=== PATIENT | female | born 1960 | race Caucasian/White ===

== ENCOUNTER 2019-12-19 10:53 | Outpatient (CLI) | payer OTHER, SELFPAY ==
--- NOTE | ~2019-12-19 | XR_ITS ---
XR finger 1st LT min 2V DATE: 12/19/2019 11:21 INDICATION: Pain TECHNIQUE: 3 views COMPARISON: None FINDINGS: There is osteoarthritis at the first carpometacarpal joint. No fracture, dislocation, periosteal reaction or bone destruction. IMPRESSION: Osteoarthritis at first carpometacarpal joint Reviewed, dictated and finalized at location A.
--- NOTE | ~2019-12-19 | XR_ITS ---
XR finger 1st RT min 2V DATE: 12/19/2019 11:21 INDICATION: Osteoarthritis TECHNIQUE: 3 views COMPARISON: None FINDINGS: There is mild osteoarthritis at the first carpometacarpal joint. No fracture, dislocation, periosteal reaction or bone destruction. IMPRESSION: Mild osteoarthritis Reviewed, dictated and finalized at location A. IMPRESSION: Mild osteoarthritis
== END 2019-12-19 10:54 | disposition home or self-care (01) ==
PROVIDERS: PCP Family Medicine; Visit Provider Plastic Surgery
DX: M19.031 Primary osteoarthritis, right wrist (principal); M19.032 Primary osteoarthritis, left wrist
CPT/HCPCS: 73140

== ENCOUNTER 2019-12-29 08:47 | Outpatient (CLI) | payer OTHER, SELFPAY ==
--- NOTE | ~2019-12-29 | XR_ITS ---
EXAMINATION: XR sm joint inject/asp w image, XR sm joint inject/asp add DATE: 12/29/2019 10:02 INDICATION: Left and right thumb pain TECHNIQUE: A time-out was performed to verify the patient's name, date of , and procedure to b e performed. The procedure including the risks, benefits, and alternatives was discussed with the pat ient. Risks discussed included bleeding and infection. The patient understood the risks and agreed to proceed. Attention was first turned to the left first carpometacarpal joint. The overlying skin was prepped and draped in usual sterile fashion. Anesthetic was administered with 1% lidocaine subcutane ously. A 25 G needle was advanced under fluoroscopic guidance into the joint. Injection of 0.1 mL o f Omnipaque 240 confirmed intra-articular position of the needle. Subsequently 0.7 mL of a 40 mg/mL mixture of Kenalog for a total dosage of 28 mg Kenalog was instilled. Washout of contrast and widenin g of the joint space was seen confirming intra-articular administration. The needle was removed and t he entry site was cleaned and dressed. Attention was then turned to the right first carpometacarpal joint. The overlying skin was prepped an d draped in usual sterile fashion. Anesthetic was administered with 1% lidocaine subcutaneously. A 25 G needle was advanced under fluoroscopic guidance into the joint. Injection of 0.1 mL of Omnipaqu e 240 confirmed intra-articular position of the needle. Subsequently 0.7 mL of a 40 mg/mL mixture of Kenalog for a total dosage of 28 mg Kenalog was instilled. Washout of contrast and widening of the j oint space was seen confirming intra-articular administration. The needle was removed and the entry s ite was cleaned and dressed. There were no immediate complications. Fluoroscopy exposure time for the combined procedures was 0.3 minutes. The total number of images was 6. FINDINGS: Real-time fluoroscopy demonstrates the needle and contrast in the first the left first carp ometacarpal joint and subsequently in the right first carpal metacarpal joint. IMPRESSION: 1. Successful fluoroscopic guided injection of 28 mg Kenalog into both the left and right first carpa l metacarpal joints. Reviewed, dictated and finalized at location A. [employer] IMPRESSION: 1. Successful fluoroscopic guided injection of 28 mg Kenalog into both the left and right first carpal metacarpal joints.
== END 2019-12-29 08:48 | disposition home or self-care (01) ==
PROVIDERS: PCP Family Medicine; Visit Provider Plastic Surgery
DX: M19.031 Primary osteoarthritis, right wrist (principal); M19.032 Primary osteoarthritis, left wrist
CPT/HCPCS: 20600; 77002; J3301; Q9966

== ENCOUNTER 2020-09-28 11:40 | Outpatient (CLI) | payer BC, SELFPAY ==
--- NOTE | 2020-09-28 11:45 | ECG_ITS ---
Measurements Intervals [place] Rate: 76 P: 58 IA: 133 QRS: 32 QRSD: 77 T: 28 QT: 348 QTc: 393 Interpretive Statements SINUS RHYTHM BASELINE ARTIFACT- I, II, III, AVR, AVL NORMAL ECG Electronically Signed On 09-28-2020 12:29:13 CDT by Saurabh Villafuerte D.O.
== END 2020-09-28 11:41 | disposition home or self-care (01) ==
LOC: ANHSURGERY 11:45
PROVIDERS: PCP Family Medicine; Visit Provider Plastic Surgery
DX: I49.9 Cardiac arrhythmia, unspecified (principal)
CPT/HCPCS: 93005

== ENCOUNTER 2020-09-29 00:32 | Day surgery (SDC) | payer BC, SELFPAY ==
[2020-09-27 14:17] VITALS: BMI 32.0
--- NOTE | 2020-09-28 14:57 | WPDANESEPPF ---
Anes - Initial Pre Proc Eval Procedure: Operation Date: 09/29/20 07:30 Proposed Procedures p Left Trapezium Resection Arthroplasty with Arthrex Internal Brace - Yossi Andrews MD Date/Time: 09/28/20 14:57 Surgeon: Yossi Andrews MD Pre Op Diagnosis: Left First Carpalmetacarpal Osteoarthritis Patient Data Age: 60 Gender: F Height: 1.73 m Weight: 95.45 kg Allergies Allergy/AdvReac Type Severity Reaction Status Date / Time morphine AdvReac Intermediate NUMBNESS Verified 09/29/20 06:10 OF ARMS/LEGS erythromycin base AdvReac Mild Nausea Verified 09/29/20 06:10 Penicillins AdvReac Mild Blister Verified 09/29/20 06:10 Home Medications Medication Instructions Recorded Confirmed Type fluticasone propionate [Flonase] 1 spray INTRANASAL DAILY 09/27/20 09/29/20 History meloxicam 7.5 mg PO PRN 09/27/20 09/29/20 History metoprolol tartrate 12.5 mg PO BID 09/27/20 09/29/20 History hcxmxhnmbtrz-boa-soms-FA-vit K 1 tablet PO DAILY 09/27/20 09/29/20 History Patient hx anesthesia problems: none Family hx anesthesia problems: none PMFSH Past Medical History Medical History (Updated 09/28/20 @ 14:57 by Walter Steele MD) Paroxysmal SVT (supraventricular tachycardia) Family History Family History (System 01/14/19 @ 10:51 by Noa Armas) Mother Diabetes mellitus Family history of cardiovascular disease Family history of malignant neoplasm of stomach Grandparent Family history of cardiovascular disease Father Family history of pancreatic cancer Family history of primary malignant neoplasm of liver Social History Social History (System 01/14/19 @ 10:51 by Noa Armas) Smoking status: Never smoker Alcohol intake: current Drinks per week: 5 Alcohol use details: socially Living arrangements: with family Spiritual care concerns: No Anes - Eval Final PreProcedure Day of Procedure 09/28/20 14:57 Patient weight: obese Heart: regular rate and rhythm Lungs: clear to auscultation Airway: Mallampati scale class III Neurological: alert and oriented Last oral intake: >/= 8 hours ASA classification: III Emergent: no Anesthetic plan: proceed Anesthesia type and monitoring: general LMA and standard monitoring Informed Consent: The patient's anesthetic plan and its attendant risks and benefits were discussed with the patient/family/POA. Questions were solicited and answers provided to the satisfaction of the patient/family/POA.
[2020-09-29] VITALS (8 sets, daily range): BP systolic 116–131; BP diastolic 69–89; PULSE 69–103; RESP 13–20; TEMP 36.5–36.9; O2SAT 93–99
--- NOTE | ~2020-09-29 | XR_ITS ---
XR surgery orthopedic DATE: 09/29/2020 08:57 INDICATION: Left trapezium resection TECHNIQUE: Multiple spot C-arm images of the left wrist and metacarpal area COMPARISON: 12/29/1999 21st carpometacarpal joint injection 12/19/2019 1st digit radiograph FINDINGS: There is surgical resection of the trapezium bone. IMPRESSION: Surgical resection of trapezium Reviewed, dictated and finalized at Location A. Reviewed, dictated and finalized at location A.
[2020-09-29] MEDS: LACTATED RINGERS 1,000 ML 30 ML IV CONT ×2 (06:20→09:15)
--- NOTE | 2020-09-29 07:03 | WPDHPUPDATE1 ---
History and Physical Update Update Date/Time: 09/29/20 07:03 History and Physical has been reviewed, including an updated exam of the patient. There are NO changes in the patient's condition. Risks, benefits, and alternatives have been discussed and questions answered. Patient agrees to proceed with procedure.
[2020-09-29] MEDS: ceFAZolin 2 GM/D5W 50 ML 2 GM/50 ML BAG IVPB (07:33)
[2020-09-29] MEDS: LIDO 1%/EPINEPHRINE/PF 1:200,000 30 ML VIAL INFILTRATE (08:01)
--- NOTE | 2020-09-29 09:31 | P.OPB_ITS ---
Procedure Note - Brief Procedure Note - Brief Date of procedure: 09/29/20 Pre-op diagnosis: Left First Carpalmetacarpal Osteoarthritis Post-op diagnosis: same Procedure performed: Trapezium resection arthroplasty with Arthrex InternalBrace. Implants: Arthrex InternalBrace Anesthesia: GLMA Surgeon: Yossi Andrews MD Toolroom Checker: Jessica Crane Estimated blood loss (mL): 5 Tourniquet time (min): 60 Drains: No Packing: No Pathology: none sent Complications: No immediate complications Condition: stable Disposition: PACU
[2020-09-29] MEDS: fentaNYL CITRATE INJ (*CRX) 100 MCG/2 ML VIAL 25 MCG IV PUSH ×4 (09:39→09:52)
--- NOTE | 2020-09-29 09:49 | W.PM.PROC2 ---
Procedure Note - Detailed Date of Procedure 09/29/20 Pre-op Diagnosis Left First Carpalmetacarpal Osteoarthritis Post-op Diagnosis same Procedure Performed Left trapezium resection arthroplasty with Arthrex internal brace Surgeon Yossi Andrews MD Estimated Blood Loss -5.0
[2020-09-29] MEDS: ONDANSETRON INJ 4 MG/2 ML VIAL IV PUSH (10:21)
[2020-09-29] MEDS: KETOROLAC 30 MG/ML VIAL (*BKC) IV PUSH (10:30)
--- NOTE | 2020-09-29 10:45 | P.OP_ITS ---
Procedure Note - Detailed Date of Procedure 09/29/20 Pre-op Diagnosis Left First Carpalmetacarpal Osteoarthritis Post-op Diagnosis same Procedure Performed Left trapezium resection arthroplasty with Arthrex internal brace Surgeon Yossi Andrews MD Buoy Tender Ava Crane Anesthesia general Indications Painful osteoarthritis of the left basal joint failing conservative treatment Description of Procedure The patient's left basal joint area was marked in the holding area. She was taken to the operating room and placed supine on the operating table. She was given 2 g of Ancef IV. The extremity was prepped and draped in usual fashion. The time-out was held and confirmed. The site was marked for incision and locally infiltrated with 1% lidocaine with epinephrine. The arm was exsanguinated with an Nishant wrap and the tourniquet inflated to 250 mmHg. The incision was made as marked and carried through the subcutaneous tissue. A single branch of the superficial radial nerve was identified and remained on the palmar side of our incision. The interspace between the EPB and the APL was incised exposing the joint. The trapezium was dissected with a 15 blade and [place] elevator. The trapezium was removed piecemeal. The deeper portion of that was divided with an osteotome. C-arm images confirmed the removal of that bone. Appropriate placement of the 2nd metacarpal anchor was confirmed with the C-arm and the site drilled. The Arthrex drill was placed over that and the fenestration made for the anchor. [place] was applied as usual. A good hold was obtained. The radial base of the 1st metacarpal was exposed and the 2nd anchor applied at that position satisfactorily. The anchor was set with the thumb abducted against the 2nd metacarpal. The site was irrigated and the capsular tissue closed with 3-0 Ethibond. The skin was closed with intradermal 4-0 Monocryl. . No additional Marcaine was given. A soft bandage with a thumb spica splint allowing IP joint range of motion was applied. The patient is discharged with prescription for hydrocodone . Estimated Blood Loss -5.0
== END 2020-09-29 11:08 | disposition home or self-care (01) ==
PROVIDERS: PCP Family Medicine; Visit Provider Plastic Surgery
PROC: (CPT 25447; principal; 2020-09-29 07:30)
DX: M18.12 Unilateral primary osteoarthritis of first carpometacarpal joint, left hand (principal); I47.1 Supraventricular tachycardia; E66.9 Obesity, unspecified; Z68.32 Body mass index [BMI] 32.0-32.9, adult
CPT/HCPCS: 25447; A9270; C1713; J0690; J1885; J2250; J2405; J3010; J7120

== ENCOUNTER 2020-11-17 09:30 | Outpatient (RCR) | payer BC, SELFPAY ==
--- NOTE | 2020-10-15 11:15 | OTOPEVAL ---
OCCUPATIONAL THERAPY INITIAL EVALUATION REPORT 10/15/20 Thank you for referring Yovany Vazquez to [facility] [place].? The patient is scheduled to be seen for therapy? 1-2x/week for 5 weeks. Please review, sign, date and return this plan of care EVELYNE. I agree with and certify that the following plan of care is medically necessary. Referring Physician Date Referring Provider: Yossi Andrews MD *OT Outpatient Evaluation Outpatient Past Medical History Neurological History Hx Neurological Disorders No Significant History Cardiovascular History Hx Irregular Heartbeat Yes: SVT Hx Other Cardiac Disorders Yes: SVT Respiratory History Hx Asthma Yes: as child Gastrointestinal History Hx Gastrointestinal Disorders No Significant History Genitourinary History Hx Genitourinary Disorders No Significant History Musculoskeletal History Hx Arthritis Yes: left finger osteoarthritis 10/09 Hematological History Hx Hematological Disorders No Significant History Endocrine History Hx Endocrine Disorders No Significant History HEENT History Hx Tonsillectomy Yes Hx Sinus Problems Yes: allergies Integumentary History Hx Skin Disorders No Significant History Reproductive History Hx Tubal Ligation Yes Hx Other Reproductive Disorders Yes: ablation Psychosocial History Hx Psychiatric Disorders No Significant History Pain History History of Any Previous or Ongoing No Significant History Instance of Pain Anesthesia History Hx Anesthesia Reactions No Significant History Evaluation Information Problem Diagnosis Left CMC OA s/p trapezium resection with Arthrex internal brace Onset 09/29/20 Subjective Information Patient states she has been Query Text:As Reported By Patient/ completing ADLs, driving, and Family typing 1-handed due to stiffness and pain. Presents today with the splint and silver wrap donned in surgery. 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
--- NOTE | 2020-11-17 10:17 | OTOPEVAL ---
OCCUPATIONAL THERAPY RE-EVALUATION AND DISCHARGE SUMMARY 11/17/20 Patient presents today, 7 weeks post trapezium resection arthroplasty, for OT re-evaluation. Measurements today show excellent return of ROM with some end-range tightness for composite thumb flexion. Card Decorator/pinch strength measurements also indicate some residual weakness. At this time the patient is independent with ROM and strengthening HEP as well as informed of ways to progress these exercises as she gets stronger. Recommend that she continues to complete her HEP diligently for another month to continue to strengthen and fine-tune these residual deficits. No further skilled OT indicated at this time. Discharging today with patient independent with HEP. Thank you for referring Yovany Vazquez to [facility].? Please review, sign, date and return this D/C Note EVELYNE. I agree with and certify that the following plan of care is medically necessary. Referring Physician Date Referring Provider: Yossi Andrews MD *OT Outpatient Re-Evaluation Start: 10/15/20 09:33 Re-Evaluation Information Diagnosis Left CMC OA s/p trapezium resection with Arthrex internal brace Onset 09/29/20 Additional Evaluation Detail 10/15/20 - Therapy began. She has attended 10 sessions for ROM and strengthening of the left wrist and hand. Subjective Information Patient states everything is Query Text:As Reported By Patient/ better . Noting ability to use Family her left hand for ADLs, driving, and typing. States her ROM and strength are getting better, but she does state that she needs to continue to work on these. Pain Assessment Timing of Pain Assessment Timing of Pain Assessment Re-assessment Pain Scale Pain Scale Used Numeric (1 - 10) Self Report Pain Assessment Left Thumb(s) Reported Pain Level 0 Lowest Pain Intensity 0 Greatest Pain Intensity 0 Pain Score Pain Score 0: Self Report Additional Pain Score Comments Reports no pain just soreness from strengthening. Upper Extremity Range of Motion Wrist Range of Motion Left Wrist Flexion - Active 60 Wrist Flexion - Passive 70 Wrist Extension - Active 60 Wrist Radial Deviation - Active 15 Wrist Ulnar Deviation - Active 25 Finger Range of Motion Left Finger Range of Motion Comments Full fist - intact Hook fist - some residual intrinsic tightness noted by 0 .5-1 cm gap for index, middle, and ring fingers Thumb Range of Motion Left Thumb MCP Flexion - Active 45 Thumb IP Flexi
== END 2020-11-17 15:41 | disposition home or self-care (01) ==
LOC: ANHOT 09:30
PROVIDERS: PCP Family Medicine; Visit Provider Plastic Surgery
DX: Z48.89 Encounter for other specified surgical aftercare (principal)
CPT/HCPCS: 97018; 97110; 97140; 97165; L3906

== ENCOUNTER 2021-02-01 07:30 | Outpatient (RCR) | payer BC, SELFPAY ==
--- NOTE | 2021-01-04 08:54 | OTOPEVAL ---
OCCUPATIONAL THERAPY EVALUATION REPORT 01/04/21 Yovany presents today, 14 weeks following CMC resection arthroplasty, for an assessment of her progress as she has concerns about the residual weakness. She has improved with functional wood carver strength, but does have residual weakness in her pinch strengths. Putty HEP was reviewed with a few new exercises to pinpoint the thumb adductor and muscles of the thenar eminence. Recommend that she complete an additional follow up in 4 weeks (~Feb 01) for a final assessment of her progress with the left thumb strengthening. She is in agreement and states that this will hold her more accountable with her HEP. Thank you for referring Yovany Vazquez to [facility].? The patient is scheduled to be seen for therapy? 0-1x/week for 4 weeks. Please review, sign, date and return this plan of care EVELYNE. I agree with and certify that the following plan of care is medically necessary. Referring Physician Date Referring Provider: Yossi Andrews MD *OT Outpatient Evaluation Start: 01/04/21 07:38 Therapy Assessment Status Assessment Status Assessment Status Evaluation Outpatient Past Medical History Past Medical History Source of Past Medical History Patient Neurological History Hx Neurological Disorders No Significant History Cardiovascular History Hx Irregular Heartbeat Yes: SVT Hx Other Cardiac Disorders Yes: svt Respiratory History Hx Asthma Yes: as child Gastrointestinal History Hx Gastrointestinal Disorders No Significant History Genitourinary History Hx Genitourinary Disorders No Significant History Musculoskeletal History Hx Arthritis Yes: left finger osteoarthritis 10/09 Hematological History Hx Hematological Disorders No Significant History Endocrine History Hx Endocrine Disorders No Significant History HEENT History Hx Tonsillectomy Yes Hx Sinus Problems Yes: allergies Integumentary History Hx Skin Disorders No Significant History Reproductive History Hx Tubal Ligation Yes Hx Other Reproductive Disorders Yes: ablation Psychosocial History Hx Psychiatric Disorders No Significant History Pain History History of Any Previous or Ongoing No Significant History Instance of Pain Anesthesia History Hx Anesthesia Reactions No Significant History Evaluation Information Problem Diagnosis s/p resection arthroplasty Onset 09/29/20 Subjective Information Patient presents today for an Query Text:As Reported By Patient/ assessment of the left thumb Family arthroplasty, completed 14 weeks ago. She was discharged from OT on 11/17/20, however she has concerns today about the weakness in the left hand and has tightness in the fingers still. Reports
--- NOTE | 2021-02-01 08:09 | OTOPEVAL ---
OCCUPATIONAL THERAPY RE-EVALUATION AND DISCHARGE NOTE 02/01/21 Yovany presents today for a final follow up of the left hand s/p CMC arthroplasty. She has been diligently working on strengthening and using her left hand in prep for having the right thumb CMC arthroplasty. Strength measurements today all improved and she is using the hand for all ADL tasks now. She states she is confident to go through with the right hand now. Educated on and reviewed digit II-V ROM and recommend that she begin these exercises within the first few days after surgery to limit the residual stiffness and edema that she had in the left fingers. D/C today with goals met. Thank you for referring oYvany Vazquez to [facility].? Please review, sign, date and return this D/C Note EVELYNE. I agree with and certify that the following plan of care is medically necessary. Referring Physician Date Referring Provider: Yossi Andrews MD *OT Outpatient Re-Evaluation Start: 01/04/21 07:38 Problem Diagnosis s/p resection arthroplasty Onset 09/29/20 Subjective Information Patient was assessed 4 weeks Query Text:As Reported By Patient/ ago for a follow up on the Family left thumb CMC arthroplasty as she continued to have some weakness and limitations with use. She was hesitant to go through with the right thumb CMC arthroplasty due to this. She states that in the last 4 weeks she has been more diligently working on strengthening and forcing herself to use the left hand. She reports feeling stronger and is now able to open drinks and containers with the left hand. She reports no pain on the left. Pain Assessment Timing of Pain Assessment Timing of Pain Assessment Re-assessment Self Report Self Report Pain Level 0 Pain Score Pain Score 0: Self Report Upper Extremity Range of Motion Wrist Range of Motion Left Wrist Flexion - Active 65 Wrist Extension - Active 65 Wrist Radial Deviation - Active 20 Wrist Ulnar Deviation - Active 35 Wrist Range of Motion Comments Measurements from 11/17/20: -Flexion 60* -Extension 60 -RD 15* -UD 25* She continues to complete wrist strengthening with 2# free weight. Finger Range of Motion Left Finger Range of Motion Comments Full fist - intact Hook fist - index and middle
== END 2021-02-01 12:27 | disposition home or self-care (01) ==
LOC: ANHOT 07:30
PROVIDERS: PCP Family Medicine; Visit Provider Plastic Surgery
DX: Z47.89 Encounter for other orthopedic aftercare (principal)
CPT/HCPCS: 97110; 97165

== ENCOUNTER 2021-02-17 00:42 | Day surgery (SDC) | payer BC, SELFPAY ==
[2021-02-09 13:59] VITALS: BMI 30.4
--- NOTE | 2021-02-09 14:03 | PC.NURSE ---
Report to the Outpatient Waiting Room, entrance under the green pavilion located off [facility], at time _0600___ on date _02-17-2021. OR Time: ___07_. - You and your visitor will be asked a series of questions to screen for COVID 19 for your protection. - A mask is required within the hospital. - Only one visitor is allowed at this time. Patient visitors will be guided where to wait when not with patient. Preoperative COVID Testing Requirements: No COVID Test needed if: (proof is required; if not received patient will have Rapid Test prior to entry) - Patient has received COVID Vaccine at least 14 days prior to procedure date or - Patient has positive COVID test result within last 90 days of surgery date. COVID Test needed if above criteria is not met If not COVID vaccinated a COVID test must be conducted within 72 hours of surgery and patient is asked to isolate self from time of testing until procedure. You will go to the [employer] [facility] for your COVID testing. The [employer] [facility] site is located at the corner of [address] from [facility]. You will only be called if COVID results are positive and your surgeon may reschedule your elective surgery date. Patients may have clear liquids (water, carbonated beverages, clear teas, apple juice) until 3 hours prior to surgery with a maximum of 20 ounces. - No food from midnight until time of surgery - Infants may have breast milk until 4 hours before surgery, infant formula 6 hours prior to surgery. - Children will be allowed to drink immediately following surgery. If applicable, please bring a bottle or sippy cup to assist with drinking. Juice, water, soda, and popsicles are readily available. For infants on formula, please bring formula the day of surgery. Pacifiers are allowed. Take the following medications with a SIP of water the morning of surgery: Metoprolol and Flonase Medications to discontinue per physician Multivitamin Date to take last obsw [id number] Please no make-up, nail czech, hairspray, perfume, deodorant, or body powder the day of surgery. No jewelry (including any body piercings) or valuables the day of surgery, leave them at home. Please take a shower or bath the night before, or the morning of, surgery with an antibacterial soap. Wear comfortable, loose fitting clothing. Children are encouraged to wear pajamas. - Jewelry must be removed prior to entering the operating room. Rings and piercings that are not removed may be cut off. - The hospital will not accept responsibility for valuables. - Please leave all valuables, including medications, at home the day of surgery. If you are going home after surgery, a licensed road oiling truck driver must drive you home. - NO public transportation without another adult. - We recommend that an adult stay with you for 24 hours following discharge. - We also recommend that you do not drive, make important decision, drink alcoholic beverages, or take any drugs that were not prescribed by your health care provider for at least 24 hours after your discharge time. For Pediatric surgeries, we recommend two adults accompany the child home (only one inside the building at this time). Follow any additional instructions given to you from your surgeon. Telephone instructions given to __Patient and asked if any additional questions and then verbalized understanding. Patient advised to call surgeon office or pre surgery nurse liaison [phone] if any additional questions.
--- NOTE | ~2021-02-17 | XR_ITS ---
EXAMINATION: XR surgery orthopedic DATE: 02/17/2021 08:51 INDICATION: Right trapezium resection TECHNIQUE: 2 fluoroscopic images of the radial aspect of the right carpus were obtained during proced ure performed by Dr. Andrews. Radiologist was not present for the imaging or procedure. The amount of f luoroscopy time used during this procedure was 0.4 minutes. Total DAP was 0.011 mGycm^2 COMPARISON: None. FINDINGS: Initial image demonstrates resection of the trapezium and osteotomy involving portions of the radial margins of the base of the second metacarpal and small portion of the radial margin of the trapezoid. There are a few residual bone fragments at the resection bed on the initial image which appears to h ave been subsequently debrided on the second image. On the second image there is proximal migration o f the first metacarpal with suggestion of some soft tissue situated between the base of the first met acarpal and the scaphoid likely for suspension arthroplasty. Tiny catheter tubing projecting over the operative bed could be for either drainage or retraction of the soft tissues. No unexpected fracture . Remaining joint spaces are normal. IMPRESSION: 1. Postoperative changes of the first carpal metacarpal suspension arthroplasty with resection of the trapezium and small portions of the trapezoid and base of the second metacarpal. See procedure note for further detail. Reviewed, dictated and finalized at location A. MACHINIST IMPRESSION: 1. Postoperative changes of the first carpal metacarpal suspension arthroplasty with resection of the trapezium and small portions of the trapezoid and base o f the second metacarpal. See procedure note for further detail.
[2021-02-17 06:10] VITALS: BP 124/62; PULSE 79; RESP 16; TEMP 36.6; O2SAT 99; BMI 32.3
[2021-02-17] MEDS: LACTATED RINGERS 1,000 ML 30 ML IV CONT ×2 (06:40→09:00)
[2021-02-17] MEDS: ACETAMINOPHEN 500 MG TABLET 1000 MG PO (06:48)
--- NOTE | 2021-02-17 06:59 | WPDANESEPPF ---
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 Patient Data Age: 60 Gender: F Height: 1.73 m Weight: 96.5 kg Allergies Allergy/AdvReac Type Severity Reaction Status Date / Time morphine AdvReac Intermediate NUMBNESS Verified 02/17/21 06:24 OF ARMS/LEGS erythromycin base AdvReac Mild Nausea Verified 02/17/21 06:24 Penicillins AdvReac Mild Blister Verified 02/17/21 06:24 Home Medications Medication Instructions Recorded Confirmed Type fluticasone propionate 1 spray INTRANASAL DAILY 09/27/20 02/09/21 History metoprolol tartrate 12.5 mg PO BID 09/27/20 02/17/21 History [id number]-vit K 1 tablet PO DAILY 09/27/20 02/17/21 History diclofenac sodium 75 mg PO BID 02/09/21 02/09/21 History Patient hx anesthesia problems: none Family hx anesthesia problems: none Results Review: All pre-operative results and documents have been reviewed as part of the pre-operative evaluation. REPLACED BY [facility] Past Medical History Medical History (Updated 02/17/21 @ 07:06 by Len Rubi MD) Obesity Paroxysmal SVT (supraventricular tachycardia) TMJ (temporomandibular joint disorder) s/p surgical correction Surgical History Surgical History (Updated 02/17/21 @ 07:01 by Len Rubi MD) H/O colonoscopy Hx of tonsillectomy Family History Family History Mother Diabetes mellitus Family history of cardiovascular disease Family history of malignant neoplasm of stomach Grandparent Family history of cardiovascular disease Father Family history of pancreatic cancer Family history of primary malignant neoplasm of liver Social History Social History Smoking status: Never smoker Alcohol intake: current Drinks per week: 5 Alcohol use details: socially Substance use: never Living arrangements: with family Spiritual care concerns: No Anes - Eval Final PreProcedure Day of Procedure 02/17/21 06:59 Patient weight: obese Heart: regular rate and rhythm Lungs: clear to auscultation Airway: Mallampati scale class II and other (hx of TMJ surgery) Neurological: alert and oriented Last oral intake: >/= 8 hours ASA classification: III Emergent: no Anesthetic plan: proceed Anesthesia type and monitoring: general LMA and standard monitoring Results Review: All pre-operative results and documents have been reviewed as part of the pre-operative evaluation. Informed Consent: The patient's anesthetic plan and its attendant risks and benefits were discussed with the patient/family/POA. Questions were solicited and answers provided to the satisfaction of the patient/family/POA.
--- NOTE | 2021-02-17 07:11 | WPDHPUPDATE1 ---
History and Physical Update Update Date/Time: 02/17/21 07:11 History and Physical has been reviewed, including an updated exam of the patient. There are NO changes in the patient's condition. Risks, benefits, and alternatives have been discussed and questions answered. Patient agrees to proceed with procedure.
[2021-02-17] MEDS: ceFAZolin 2 GM/D5W 50 ML 2 GM/50 ML BAG IVPB (07:27)
[2021-02-17] MEDS: KETOROLAC 15 MG/ML VIAL (*BKC) IV PUSH ×2 (07:39→10:35)
[2021-02-17] MEDS: LIDO 1%/EPINEPHRINE 1:100,000 50 ML VIAL INFILTRATE (07:49)
[2021-02-17] MEDS: BUPIVACAINE HCL 0.5% PF 30 ML VIAL INFILTRATE (08:47)
[2021-02-17 09:00] VITALS: BP 106/57; PULSE 79; RESP 17; TEMP 36.3; O2SAT 100
[2021-02-17 09:15] VITALS: BP 107/61; PULSE 67; RESP 18; O2SAT 100
--- NOTE | 2021-02-17 09:18 | SUR.PHASEI ---
Simple mask removed at 0917.
[2021-02-17 09:30] VITALS: BP 104/50; PULSE 66; RESP 16; O2SAT 100
[2021-02-17 09:36] VITALS: BP 115/67; PULSE 70; RESP 16
--- NOTE | 2021-02-17 09:47 | P.OP_ITS ---
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 She was taken to the operating room where she was placed supine on the operating table. A time-out was held and confirmed. The extremity was prepped and draped in usual fashion and she was given general anesthesia. The site was marked for the incision and locally infiltrated with 1% lidocaine with epinephrine. The patient had received 2 g of Ancef preoperatively along with 1000 mg of Tylenol p.o.. She given IV Toradol 15 mg at the end of the case. 8 milliliter of Marcaine 0.5% was infiltrated in the proximal wrist area at the end of the case. The tourniquet was inflated to 250 mmHg. The incision was made as marked along the radial base of the thumb area. The dissection was carried through the subcutaneous tissue to the interspace between the APB and EPL. A cutaneous nerve was identified and retracted radially with a vessel loop throughout the case. The capsule was incised. The base of the metacarpal and the margins of the trapezium were dissected with a 15 blade and [place] elevator. The trapezium was resected piecemeal with a rongeur. Site was imaged several times to confirm adequate resection. The Arthrex InternalBrace instruments were on table. And estimation of placement of 2nd metacarpal suture lock was imaged. The C-wire was placed and imaged and the drill hole made over the guide wire. The suture lock was successfully placed. The 2nd fenestration was made and base of the metacarpal in the same fashion and the suture lock satisfactorily placed to retain the SutureTape. This construct was imaged with compression and distraction of the metacarpal. The site was irrigated and the capsule closed with 3-0 Vicryl suture. Skin was closed with intradermal interrupted 3-0 Vicryl a running 4-0 intradermal Monocryl . Soft bandage with the thumb spica forearm based splint was applied the Marcaine was given. The patient was extubated and discharged from the operating room stable condition. Estimated Blood Loss 5 Tourniquet Time 51 Drains No Packing No Pathology none sent Complications No immediate complications Condition stable Disposition PACU
[2021-02-17 10:05] VITALS: BP 107/67; PULSE 63; RESP 16
== END 2021-02-17 10:41 | disposition home or self-care (01) ==
PROVIDERS: PCP Family Medicine; Visit Provider Plastic Surgery
PROC: (CPT 25447; principal; 2021-02-17 07:30)
DX: M18.11 Unilateral primary osteoarthritis of first carpometacarpal joint, right hand (principal); I47.1 Supraventricular tachycardia; E66.9 Obesity, unspecified; Z68.32 Body mass index [BMI] 32.0-32.9, adult
CPT/HCPCS: 25447; A9270; C1713; J0690; J1100; J1885; J2405; J2704; J7120

== ENCOUNTER 2021-04-27 12:30 | Outpatient (RCR) | payer BC, SELFPAY ==
--- NOTE | 2021-02-23 10:34 | OTOPEVAL ---
OCCUPATIONAL THERAPY INITIAL EVALUATION REPORT 02/23/21 Patient presents today, 6 days s/p right CMC arthroplasty, for thumb spica splint fabrication. A well fitting, forearm-based thumb spica with the thumb IP free was fabricated, fitted, and issued. She is independent with don/doffing and reports a comfortable fit. She is currently independent with finger active ROM from her previous surgery. Continued skilled therapy indicated 3 weeks post op for thumb and wrist ROM, HEP education, and modalities PRN. Will allow her to make an appointment in the meantime for any splinting adjustments. Plan to see the patient 0-2x/week for 6 weeks. Thank you for referring Yovany Vazquez to [facility].? Please review, sign, date and return this plan of care EVELYNE. I agree with and certify that the following plan of care is medically necessary. Referring Physician Date Referring Provider: Yossi Andrews MD *OT Outpatient Evaluation Start: 02/23/21 08:00 Therapy Assessment Status Assessment Status Assessment Status Evaluation Outpatient Past Medical History Neurological History Hx Neurological Disorders No Significant History Cardiovascular History Hx Irregular Heartbeat Yes: SVT Hx Other Cardiac Disorders Yes: svt Respiratory History Hx Asthma Yes: as child Gastrointestinal History Hx Gastrointestinal Disorders No Significant History Genitourinary History Hx Genitourinary Disorders No Significant History Musculoskeletal History Hx Arthritis Yes: CMC OA Hx Joint Replacement Yes: Bilateral CMC arthroplasty Hematological History Hx Hematological Disorders No Significant History Endocrine History Hx Endocrine Disorders No Significant History HEENT History Hx Tonsillectomy Yes Hx Sinus Problems Yes: allergies Integumentary History Hx Skin Disorders No Significant History Reproductive History Hx Tubal Ligation Yes Hx Other Reproductive Disorders Yes: ablation Psychosocial History Hx Psychiatric Disorders No Significant History Pain History History of Any Previous or Ongoing No Significant History Instance of Pain Anesthesia History Hx Anesthesia Reactions No Significant History Evaluation Information Diagnosis s/p trapezium resection, right thumb w/ Arthrex Internal Brace Onset 02/17/21 Subjective Information Patient presents today for Query Text:As Reported By Patient/ splint fabrication. Family She follows up with on 03/08 . ROM not indicated until 3 weeks post op. 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
--- NOTE | 2021-03-30 15:33 | OTOPEVAL ---
OCCUPATIONAL THERAPY RE-EVALUATION 03/30/21 Yovany presents today, 6 weeks following right trapezium resection with Arthrex internal brace, for OT re-evaluation. She has made progress with functional ROM, but continues to have some end-range deficit with composite thumb flexion as well as wrist flexion, extension, and RD. Taxation Accountant and pinch strength measurements were measured for the first time today and she was issued strengthening HEP. She will benefit from continued skilled OT to progress ROM and resistive exercises to facilitate optimal functional use of the right wrist/hand. Thank you for referring Yovany Vazquez to [facility].? The patient is scheduled to be seen for therapy?1x/week for 4 weeks. Please review, sign, date and return this plan of care EVELYNE. I agree with and certify that the following plan of care is medically necessary. Referring Physician Date Referring Provider: Yossi Andrews MD *OT Outpatient Evaluation Start: 02/23/21 08:00 Evaluation Information Problem Diagnosis s/p trapezium resection, right thumb w/ Arthrex Internal Brace Onset 02/17/21 Subjective Information Yovany reports that she has Query Text:As Reported By Patient/ been trying to use her right Family hand for more light tasks, but she has been having difficulty getting used to using the hand. We just began weaning off the splint a few days ago. She states she continues to have difficulties with using the thumb for pinching any amount of weight such has when she tries to use a curling iron. Today it was recommended that she no longer wears her splint and that she begins to progressively use her hand for more ADL tasks. She has been issued strengthening HEP. Pain Assessment Timing of Pain Assessment Timing of Pain Assessment Re-assessment Pain Scale Pain Scale Used Numeric (1 - 10) Self Report Pain Assessment Right Hand(s) Reported Pain Level 0 Lowest Pain Intensity 0 Pain Score Pain Score 0: Self Report Upper Extremity Range of Motion Elbow/Forearm Range of Motion Right Forearm Supination - Active 85 Forearm Pronation - Active 90 Wrist Range of Motion Right Wrist Flexion - Active 55 Wrist Extension - Active 50 Wrist Radial Deviation - Active 15 Wrist Ulnar Deviation - Active 25 Finger Range of Motion Right Finger Range of Motion Comments Digits II-V:
--- NOTE | 2021-04-27 13:22 | OTOPEVAL ---
OCCUPATIONAL THERAPY RE-EVALUATION REPORT AND DISCHARGE SUMMARY 04/27/21 Yovany presents today, 10 weeks following right trapezium resection with Arthrex internal brace. She has returned to using her right hand for all ADL and work tasks and reports no functional limitations. Her ROM and strength have progressed really well. She does note some difficulty with writing, noting some decreased palmar rotation of the thumb when holding a pen. 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 Otherwise she is independent with all materials and ready for discharge. No further skilled OT indicated at this time. Thank you for referring Yovany Vazquez to [facility]. Please review, sign, date and return this D/C Note EVELYNE. I agree with and certify that the following plan of care is medically necessary. Referring Physician Date Referring Provider: Yossi Andrews MD *OT Outpatient Re-valuation Diagnosis s/p trapezium resection, right thumb w/ Arthrex Internal Brace Onset 02/17/21 Subjective Information Yovany reports that she has Query Text:As Reported By Patient/ progressed to being able to Family use her hand for all ADL tasks . 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 Reports some difficulties with writing. Pain Assessment Timing of Pain Assessment Timing of Pain Assessment Re-assessment Pain Scale Pain Scale Used Numeric (1 - 10) Self Report Pain Assessment Right Hand(s) Reported Pain Level 0 Lowest Pain Intensity 0 Greatest Pain Intensity 0 Pain Score Pain Score 0: Self Report Upper Extremity Range of Motion Elbow/Forearm Range of Motion Right Forearm Supination - Active 85 Forearm Pronation - Active 90 Wrist Range of Motion Right Wrist Flexion - Active 60 Wrist Extension - Active 60 Wrist Radial Deviation - Active 17 Wrist Ulnar Deviation - Active 30 Finger Range of Motion Right Reason Not Measured WNL/Right Finger Range of Motion Comments Digits II-V: -full fist intact -hook fist intact Thumb Range of Motion Right Thumb MCP Flexion - Active 45 Thumb IP Flexion - Active 60 Thumb CMC Radial Abduction - Active 45 Thumb CMC Palmar Abduction - Active 55 Opposition to 5th Digit Base 0 Thumb Range of Motion Comments Tip to base of V was 3 cm gap and now she is now WNL Hand Alarm Service Technician/Pinch Strength Assessment Hand Right Alarm Service Technician Strength (lbs) 60 Lateral Pinch Strength (lbs) 5.33 Palmar Pinch Strength (lbs) 6.33 Tip Pinch Strength (lbs) 3.33 Hand Alarm Service Technician/Pinch Strength Comments Measurements from 03/30/21:
== END 2021-04-27 13:54 | disposition home or self-care (01) ==
LOC: ANHOT 12:30
PROVIDERS: PCP Family Medicine; Visit Provider Plastic Surgery
DX: Z48.89 Encounter for other specified surgical aftercare (principal)
CPT/HCPCS: 97018; 97110; 97140; 97165; L3806

== ENCOUNTER → 2021-05-16 10:12 | Outpatient (CLI) | payer BC, SELFPAY ==
--- NOTE | ~2021-05-16 | DEXA_ITS ---
Bone Density Report Name: RASHMI ESPAÑA Age: 60 Sex: Female Ethnicity: White Date of : 1960 Indication: postmenopausal; screening for osteoporosis; Referring Provider: TUTU YAO Study: Bone densitometry was performed. Exam Date: May 16, 2021 Accession number: [id number] Bone Density: Region BMD T-score Z-score Classification AP Spine (L1-L4) 1.015 -0.3 1.1 Normal Femoral Neck (Left) 0.719 -1.2 0.1 Osteopenia Total Hip (Left) 0.857 -0.7 0.2 Normal Femoral Neck (Right) 0.707 -1.3 0.0 Osteopenia Total Hip (Right) 0.831 -0.9 0.0 Normal Total Hip Mean 0.844 -0.8 0.1 Normal World Health Organization criteria for BMD impression classify patients as: Normal (T-score at or above -1.0), Osteopenia (T-score between -1.0 and -2.5), or Osteoporosis (T-score at or below -2.5). 10-year Fracture Risk(1): Major Osteoporotic Fracture 7.3% Hip Fracture 0.5% Reported Risk Factors: [place] (), Neck BMD=0.707, BMI=29.3 (1) FRAX(R) Version 3.08. Fracture probability calculated for an untreated patient. Fracture probability may be lower if the patient has received treatment. Clinical Information Provided by Patient: Patient maximum height was 68 Menopause Age: 56 No regular weight bearing exercise Does not regularly consume dairy products Onset of menses at age 17 Number of children 2 Impression: The patient has low bone mass, based on the Right Femoral Neck T-score. The patient has an estimated ten-year risk of hip fracture of 0.5% and an estimated ten-year risk of major fracture of 7.3%, based on the WHO FRAX algorithm. Discussion: BONE DENSITY IS LOW AT ONE OR MORE SKELETAL SITES. This patient's lowest T-score is low at one or more skeletal sites. It meets the World Health Organization's (WHO) criteria for ?low bone mass? (T-score between -1.0 and -2.5). The patient's 10-year risk of fracture as calculated by FRAX is less than the threshold where pharmacological therapy is recommended by the National Osteoporosis Foundation (NOF). However, all treatment decisions require clinical judgment and consideration of individual patient factors, including patient preferences, comorbidities, previous drug use, risk factors not captured in the FRAX model (e.g., frailty, falls, vitamin D deficiency, increased bone turnover, interval significant decline in bone density) and possible under or overestimation of fracture risk by FRAX. The patient should follow a healthful lifestyle (good nutrition with adequate calcium and vitamin D, and appropriate weight-bearing exercise). Follow-Up: Consider repeating this study in 2 to 3 years to reassess this patient's status, or sooner if there is some new clinical indication. Reported by: on 05/16/2021 10:39:00 AM.
== END ==
PROVIDERS: PCP Family Medicine; Visit Provider Family Medicine
DX: Z78.0 Asymptomatic menopausal state (principal); M85.852 Other specified disorders of bone density and structure, left thigh; M85.851 Other specified disorders of bone density and structure, right thigh
CPT/HCPCS: 77080

== ENCOUNTER 2024-02-05 10:54 | Outpatient (CLI) | payer OTHER, SELFPAY ==
[2024-02-05 11:48] LABS: Influenza A QL RT-PCR Negative (Negative); Influenza B QL RT-PCR Negative (Negative); RSV RNA, RT-PCR Negative (Negative); SARS-CoV-2 RNA PCR Positive (Negative)
== END 2024-02-05 10:55 | disposition home or self-care (01) ==
LOC: ANHLAB 10:58
PROVIDERS: PCP Family Medicine; Visit Provider Family Medicine
DX: J06.9 Acute upper respiratory infection, unspecified (principal); Z20.822 Contact with and (suspected) exposure to COVID-19
CPT/HCPCS: 87637